=== PATIENT | male | born 1945 | race Caucasian/White ===

== ENCOUNTER → 2016-09-24 | Outpatient (CLI) | payer BC, MEDICARE ==
[~2016-09-24] MED LIST: AMLODIPINE BESY10 MG PO; CARVEDILOL3.125 MG PO; CORDARONE200 M1 PO; ELIQUIS5 MG PO; ESCITALOPRAM OX10 MG PO; GABAPENTIN300 MG PO; IMDUR PO; METOCLOPRAMIDE H5 MG PO; MOVANTIK25 MG PO; MSIR15 M1 PO; NEXIUM PO; OXYCODONE-APAP1 EAC5 PO; OXYCODONE15 MG PO; OXYCONTIN30 MG PO; PLAVIX PO; PRINIVIL10 MG PO; RANEXA500 MG PO; ZITHROMAX1 G/PKT PO
--- NOTE | ~2016-09-24 | CR150 ---
[facility] A Service of [facility] & [facility] RADIOLOGY TEXT RESULTS PATIENT: JEFFREY HAMLIN LOCATION: [facility] : 43 UNIT #: [id number] AGE: [address]: Mart Cespedes MD SEX: M ORDER DR: [id number] [facility] [address] [facility] [place] [facility] [place], [place] [address] [id number] O MR#: [id number] Acc #: [id number] NAME: JEFFREY HAMLIN : 1945 SEX: M STUDY DATE/TIME: 09/24/2016 12:40 UNIT: [facility] ROOM: STUDY DESCRIPTION: CR Hip Min 2 Views Lt Attending Physician: Mart Cespedes M.D. Referring Physician: Mart Cespedes M.D. Ordering Physician: Mart Cespedes M.D. Primary Care Physician: Kane Patrick M.D. MEDICAL IMAGING REPORT This report is preliminary unless electronic signature is present EXAM Left hip, 09/24. INDICATIONS Chronic hip pain for years, progressively worsening. Degenerative joint disease. FINDINGS AP pelvis was obtained in addition to a frogleg left hip. 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 No fracture or malalignment is seen. There is some mild acetabular spurring bilaterally compatible with osteoarthritis. No evidence of osteonecrosis in the femoral heads. 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 No acute findings. Dictated by... Raffi Cunningham Jr., M.D. THIS IS AN ELECTRONICALLY VERIFIED REPORT Raffi Cunningham Jr., M.D. at 09/25/2016 5:04 PM CONSUELO/devonte TD: 09/25/2016 12:57 JOB #: [id number] MEDICAL IMAGING REPORT Page 1 of 1 COPY
--- NOTE | ~2016-09-24 | CR151 ---
[facility] A Service of [facility] & [facility] RADIOLOGY TEXT RESULTS PATIENT: JEFFREY HAMLIN LOCATION: [facility] : 43 UNIT #: [id number] AGE: [address]: Mart Cespedes MD SEX: M ORDER DR: [id number] [facility] [address] [facility]. [place], [place] [address] [id number] O MR#: [id number] Acc #: [id number] NAME: JEFFREY HAMLIN : 1945 SEX: M STUDY DATE/TIME: 09/24/2016 12:39 UNIT: [facility] ROOM: STUDY DESCRIPTION: CR Hip Min 2 Views Rt Attending Physician: Mart Cespedes M.D. Referring Physician: Mart Cespedes M.D. Ordering Physician: Mart Cespedes M.D. Primary Care Physician: Kane Patrick M.D. MEDICAL IMAGING REPORT This report is preliminary unless electronic signature is present EXAM Right hip and pelvis 09/24 INDICATIONS Bilateral hip pain for years, progressively worsening. Degenerative joint disease. FINDINGS AP pelvis was obtained in addition to a frog-leg right hip. Note is made of a right-side iliac arterial stent. No fracture or malalignment is seen. Femoral heads are normal without evidence of osteonecrosis. Minimal bilateral acetabular spurring is seen. IMPRESSION Very mild hip osteoarthritis for age. No acute findings. Dictated by... Raffi Cunningham Jr., M.D. THIS IS AN ELECTRONICALLY VERIFIED REPORT Raffi Cunningham Jr., M.D. at 09/25/2016 5:04 PM RLK/robert TD: 09/25/2016 13:15 JOB #: [id number] MEDICAL IMAGING REPORT Page 1 of 1 COPY
== END | disposition home or self-care (01) ==
LOC: CRAD 12:20
DX: M16.0 Bilateral primary osteoarthritis of hip (principal)
CPT/HCPCS: 73502

== ENCOUNTER → 2016-10-14 | Outpatient (CLI) | payer BC, MEDICARE ==
--- NOTE | ~2016-10-14 | XA30 ---
[facility] A Service of [facility] RADIOLOGY TEXT RESULTS PATIENT: JEFFREY HAMLIN LOCATION: [facility] : 43 UNIT #: [id number] AGE: [address]: aMrt Cespedes MD SEX: M ORDER DR: [id number] [facility] [address]. [place], [place] [address] [id number] O MR#: [id number] Acc #: [id number] NAME: JEFFREY HAMLIN : 1945 SEX: M STUDY DATE/TIME: 10/14/2016 11:17 UNIT: [facility] ROOM: STUDY DESCRIPTION: XA Arthrocentesis Major Joint Attending Physician: Mart Cespedes M.D. Referring Physician: Mart Cespedes M.D. Ordering Physician: Mart Cespedes M.D. Primary Care Physician: Kane Patrick M.D. MEDICAL IMAGING REPORT This report is preliminary unless electronic signature is present EXAM Bilateral hip injections for fluoroscopic guidance. DATE OF EXAM 10/14/2016 HISTORY Bilateral hip pain. PROCEDURE Informed consent was obtained from the patient. Both hips were sterilely prepped and draped. The same procedure is performed in both hips, initially local anesthesia followed by fluoroscopically guided placement of a 22-gauge spinal needle into the joint with injection of contrast material to confirm intraarticular needle tip position followed by injection of 40 mg of Depo-Medrol and 3 mL of Marcaine in each hip. With both sides combined, total fluoroscopy time was 0.6 minutes with two spot images obtained. IMPRESSION Successful bilateral hip fluoroscopically guided injection with Depo-Medrol and Marcaine without complication. Dictated by... Corey Rogel M.D. THIS IS AN ELECTRONICALLY VERIFIED REPORT Corey Rogel M.D. at 10/15/2016 2:55 PM JOHAN/emil TD: 10/14/2016 21:38 [facility] A Service [facility] RADIOLOGY TEXT RESULTS PATIENT: JEFFREY HAMLIN [id number] 43 UNIT #: [id number] AGE: [address]: Mart Cespedes MD SEX: M ORDER DR: RAYA #: [id number] MEDICAL IMAGING REPORT Page 1 of 1 COPY
== END | disposition home or self-care (01) ==
LOC: CIVR 11:00
DX: M16.0 Bilateral primary osteoarthritis of hip (principal); M25.559 Pain in unspecified hip
CPT/HCPCS: 77002; J1030; Q9966